=== PATIENT | male | born 1960 | race Caucasian/White ===

== ENCOUNTER 2023-09-17 10:05 | Outpatient (AMB) | payer OTHER, SELFPAY ==
--- NOTE | 2023-09-17 10:20 | HO.NEPHOV ---
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 Guzman in follow-up of his hypertension. 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 He still gets occasional visual losses but not frequently. He monitors his blood pressure at home and has been at goal. He is very active and is conscious with his diet. He has no side effects from the medications or any orthostatic symptoms. 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 His INR has been maintained at goal. He avoids any nonsteroidal anti-inflammatory medications. He keeps up with good hydration. He did not have any specific complaints at the time this office visit. [facility] Medical History (Updated 09/17/23 @ 14:41 by Edy John MD) Hypertension Hypercholesterolemia Aortic dissection Surgical History S/P right knee arthroscopy History of mechanical aortic valve replacement History of fasciotomy Family History Mother Diabetes mellitus Leukemia Father AAA (abdominal aortic aneurysm) Physical Exam Vital Signs: Last Vital Signs Pulse 50 09/17/23 10:21 BP 130/70 09/17/23 10:21 Pulse Ox 98 09/17/23 10:21 Oxygen Delivery Method Room Air 09/17/23 10:21 BMI result Body Mass Index 27.9 Const General: comfortable and no acute distress Orientation/consciousness: patient oriented x3 HEENT Head: Yes normocephalic Mouth: Normal oral and palatal mucosa present Eyes EOM: EOMs intact bilaterally Neck Neck: Yes supple Resp Auscultation: clear to auscultation bilaterally Cardio Jugular venous distension: no JVD Rate: regular rate GI Palpation (GI): Soft to palpation Auscultation: normal bowel sounds General: Yes no CVA tenderness Back/Spine/Pelvis Back: no CVA tenderness Skin General skin exam: no rashes or lesions noted Neuro General: patient oriented x3 and moves all extremities Extrem General: Yes no pedal edema Results Reviewed Nephrology Results: No Data to Display Assessment & Plan Assessment & Plan (1) Hypertension: Code(s): I10 - Essential (primary) hypertension Category: Medical Qualifiers: Hypertension type: renovascular hypertension Qualified Code(s): I15.0 - Renovascular hypertension Plan Dr Guzman had 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 His serum creatinine has been stable. His blood pressure has been at goal. He is tolerating angiotensin receptor remi and spironolactone. He never had hyperkalemia. His INR is at goal. He needs to follow-up with the vascular surgeon as well as wallpaper scraper. Follow-up blood work ordered. Answered all questions. Follow-up appointment given in 1 year. Orders: Orders Creatinine Today I10 - Essential (primary) hypertension Blood Urea Nitrogen Today I10 - Essential (primary) hypertension Electrolytes Today I10 - Essential (primary) hypertension Protein Creatinine Ratio, Ur Today I10 - Essential (primary) hypertension Coding Level of Care Code Est Pt Level 4 (11642) Diagnoses Renovascular hypertension I15.0 Hypertension type: renovascular hypertension
[2023-09-17 10:21] VITALS: BP 128/70; PULSE 50; O2SAT 98; BMI 27.9
== END 2023-09-17 13:32 | disposition home or self-care (01) ==
PROVIDERS: Visit Provider Internal Medicine Nephrology
DX: I15.0 Renovascular hypertension (principal)
CPT/HCPCS: 99214

== ENCOUNTER → 2023-09-17 10:05 | Outpatient (BNVA) | payer OTHER, SELFPAY | PROVIDERS: Visit Provider Internal Medicine Nephrology ==

== ENCOUNTER 2024-10-15 14:24 | Outpatient (AMB) | payer OTHER, SELFPAY ==
--- NOTE | 2024-10-15 14:31 | HO.NEPHOV_ITS ---
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 He still gets occasional visual losses but not frequently. He monitors his blood pressure at home and has been at goal. He is very active and is conscious with his diet. He has no side effects from the medications or any orthostatic symptoms. 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 His INR has been maintained at goal. He avoids any nonsteroidal anti-inflammatory medications. He keeps up with good hydration. He did not have any specific complaints at the time this office visit. [facility] Medical History (Updated 09/17/23 @ 14:41 by Edy John MD) Hypertension Hypercholesterolemia Aortic dissection Surgical History S/P right knee arthroscopy History of mechanical aortic valve replacement History of fasciotomy Family History Mother Diabetes mellitus Leukemia Father AAA (abdominal aortic aneurysm) Review of Systems Const All systems reviewed & are unremarkable except as noted in HPI and below Physical Exam Const General: comfortable and no acute distress Orientation/consciousness: patient oriented x3 HEENT Head: Yes normocephalic Mouth: Normal oral and palatal mucosa present Eyes EOM: EOMs intact bilaterally Neck Neck: Yes supple Resp Auscultation: clear to auscultation bilaterally Cardio Jugular venous distension: no JVD Rate: regular rate GI Palpation (GI): Soft to palpation Auscultation: normal bowel sounds General: Yes no CVA tenderness Back/Spine/Pelvis Back: no CVA tenderness Skin General skin exam: no rashes or lesions noted Neuro General: patient oriented x3 and moves all extremities Extrem General: Yes no pedal edema Assessment & Plan Assessment & Plan (1) Hypertension: Code(s): I10 - Essential (primary) hypertension Category: Medical Qualifiers: Hypertension type: renovascular hypertension Qualified Code(s): I15.0 - Renovascular hypertension Plan Shabbirarnav had 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 His serum creatinine has been stable. His blood pressure has been at goal. He is tolerating angiotensin receptor remi and spironolactone. He never had hyperkalemia. His INR is at goal. He needs to follow-up with the vascular surgeon as well as boilermaker welder. Follow-up blood work ordered. Answered all questions. Follow-up appointment given in 1 year. Orders: Orders Creatinine Today I15.0 - Renovascular hypertension Electrolytes Today I15.0 - Renovascular hypertension Blood Urea Nitrogen Today I15.0 - Renovascular hypertension Coding Level of Care Code Est Pt Level 4 (75616) Diagnoses Renovascular hypertension I15.0 Hypertension type: renovascular hypertension
[2024-10-15 14:35] VITALS: BP 120/60; PULSE 57; O2SAT 97; BMI 28.8
--- OUTSIDE RECORDS SUMMARY | 2024-10-15 15:40 | XMS_ITS | Clinical Summary ---
Author Organization [facility] Address [address] [facility] [address] [place] [address] Phone Care Team Providers Care Bacteriologist Dairy Name Role Phone Unavailable Primary Care Provider Unavailabl e Allergies Active Allergy Reactions Criticality Noted Date Comments Penicillins Other (see comments) 10/25/2020 Medications warfarin (COUMADIN) 5 MG tablet Take by mouth 1 (one) time each day Active pravastatin (PRAVACHOL) 40 MG tablet Take 1 tablet by mouth 1 (one) time each day 08/25/2020 Active NIFEdipine CC (ADALAT CC) 60 MG 24 hr tablet TAKE 1 TABLET BY MOUTH 1 TIME EACH DAY. 90 tablet 1 03/29/2022 Active spironolactone (ALDACTONE) 50 MG tablet TAKE 1 TABLET BY MOUTH EVERY DAY 90 tablet 4 06/15/2022 Active losartan (COZAAR) 50 MG tabletIndication s:Hypertension TAKE 1 TABLET BY MOUTH 1 TIME EACH DAY. 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 Dissection of aorta 09/19/2015 Cardiac arrhythmia 09/19/2015 Immunizations Immunization Administration Dates Next Due Influenza, Unspecified 01/10/2016 Tdap 01/09/2008 Family History Medical History Relation Comments Diabetes Mother Relation Status Comments Father Mother Social History Tobacco Use Types Packs/Day Years Used Date Smoking Tobacco: Never Smokeless Tobacco: Never Tobacco Cessation:Counseling Given: Not Answered Alcohol Use Standard Drinks/Week Comments Yes 0 (1 standard drink = 0.6 oz pure alcohol) Alcoholic Drinks/day: Occasional social drink Sex and Gender Information Value Date Recorded Sex Assigned at Not on file Legal Sex Male 4:45 PM EST Gender Identity Not on file Sexual Orientation Not on file Last Filed Vital Signs Vital Sign Reading Time Taken Comments Blood Pressure 120/60 02/26/2022 4:36 PM EDT Pulse 55 02/26/2022 4:36 PM EDT Temperature - - Respiratory Rate - - Oxygen Saturation 99% 11/01/2020 3:10 PM EDT Inhaled Oxygen Concentration - - Weight 97.9 kg (215 lb 12.8 oz) 02/26/2022 4:36 PM EDT Height 188 cm (6' 2 ) 10/23/2019 12:00 PM EDT Body Mass Index 27.71 10/23/2019 12:00 PM EDT Plan of Treatment Health Maintenance Due Date Last Done Comments Pneumococcal Vaccine: 50+ Ye ars (1 of 2 - PCV) 10/13/1979 Colorectal Cancer Screening: Annual FOBT 2009 Colorectal Cancer Screening: Colonoscopy 2009 Colorectal Cancer Screening: Sigmoidoscopy 2009 Influenza Vaccine (Season Ended) 2024 01/10/20 16 Hepatitis B Vaccine Aged Out No longe r eligible based on patient's age to complete this topic
== END 2024-10-15 16:15 | disposition home or self-care (01) ==
LOC: HO.HKAS 14:24
PROVIDERS: Visit Provider Internal Medicine Nephrology
DX: I15.0 Renovascular hypertension (principal)
CPT/HCPCS: 99214

== ENCOUNTER 2024-10-15 14:24 | Outpatient (REF) | payer OTHER, SELFPAY ==
[2024-10-15 17:59] LABS: Anion Gap 10 (12-20); Blood Urea Nitrogen 14 mg/dL (9-16); Carbon Dioxide 28 mmol/L (22-29); Chloride 105 mmol/L (96-108); Estimated Glomerular Filt Rate > 60; Sodium 139 mmol/L (135-145)
== END 2024-10-15 14:25 | disposition home or self-care (01) ==
LOC: HO.HKASLDS 14:24
PROVIDERS: Visit Provider Internal Medicine Nephrology
DX: I15.0 Renovascular hypertension (principal)
CPT/HCPCS: 36415; 80051; 82565; 84520